=== PATIENT | female | born 1985 | race Hispanic/Latino ===

== ENCOUNTER 2017-01-28 17:24 | Emergency (ER) | payer OTHER ==
--- NOTE | 2017-01-28 19:04 | C.PDOC ---
History Of Present Illness 31 year old female was brought to the emergency department by EMS after being found wandering intoxicated. Patient had pin point pupils on field and was given narcan on field. She denies any trauma, suicidal, or homicidal ideations. Time Seen by Provider: 01/28/17 18:27 Chief Complaint (Nursing): Substance Abuse History Per: Patient, EMS History/Exam Limitations: no limitations Onset/Duration Of Symptoms: Hrs Current Symptoms Are (Timing): Still Present Suicide/Self Injury Attempted (Context): None Associated Symptoms: denies: Suicidal Thoughts, Suicidal Plan Involuntary Hold By: None Recent travel outside of the [place]: No Past Medical History Reviewed: Historical Data, Nursing Documentation, Vital Signs Vital Signs: Last Vital Signs Temp 98.1 F 01/28/17 17:30 Pulse 86 01/28/17 17:30 Resp 18 01/28/17 17:30 BP 127/82 01/28/17 17:30 Pulse Ox 97 01/28/17 19:21 Family History: States: Unknown Family Hx - Social History Hx Alcohol Use: Yes Hx Substance Use: No Review Of Systems Constitutional: Negative for: Fever, Chills Cardiovascular: Negative for: Chest Pain, Palpitations Respiratory: Negative for: Cough, Shortness of Breath Gastrointestinal: Negative for: Nausea, Vomiting, Abdominal Pain, Diarrhea Physical Exam - Physical Exam Appears: Non-toxic, No Acute Distress, Other (Exam performed in the presence of JOHNIE Self. Patient has EtOH on breath, is stuporous, sluggish, and arousable to painful stimuli. ) Skin: Warm, Dry, Other (Patient has pulled out IV ) Head: Atraumatic Eye(s): bilateral: Other (pupils dilated) Oral Mucosa: Moist Neck: Supple Chest: Symmetrical, No Deformity Cardiovascular: Rhythm Regular Respiratory: Normal Breath Sounds, No Rhonchi, No Wheezing Gastrointestinal/Abdominal: Soft, No Tenderness, No Distention, No Guarding, No Rebound Neurological/Psych: Oriented x3 ED Course And Treatment - Laboratory Results Result Diagrams: 01/28/17 19:06 01/28/17 Unknown Lab Interpretation: Abnormal (etoh 469 H, tox + benzo/THC) Urine POC: Negative O2 Sat by Pulse Oximetry: 97 (room air ) Reevaluation Time: 00:22 Reassessment Condition: Improved (improving steadily, multiple re-evals) Medical Decision Making Medical Decision Making: abuse of alcohol, benzo's, marijuana 0100: pending sobriety and dispo in AM Disposition - Disposition Disposition Time: 01:00 Condition: GOOD Forms: [facility] (Turkmen) - Clinical Impression Clinical Impression: Alcohol intoxication, Polysubstance (excluding opioids) dependence - Scribe Statement The provider has reviewed the documentation as recorded by the Scribe Tory Ching All medical record entries made by the Scribe were at my direction and personally dictated by me. I have reviewed the chart and agree that the record accurately reflects my personal performance of the history, physical exam, medical decision making, and the department course for this patient. I have also personally directed, reviewed, and agree with the discharge instructions and disposition. Physician Patient Turnover Patient Signed Over To: Justus Hart Handoff Comments: dispo in AM when sober
[2017-01-28 19:13] LABS: BASO # 0.1 K/uL (0.0-0.2); BASO % 1.7 % (0.0-2.0); EOS # 0.2 K/uL (0.0-0.7); EOS % 5.2 % (0.0-4.0); LYMPH # 1.9 K/uL (1.0-4.3); LYMPH % 46.4 % (20.0-40.0); MEAN CELL VOLUME 104.4 fL (81.0-99.0); MEAN CORPUSCULAR HEMOGLOBIN 35.5 pg (27.0-31.0); MONO # 0.3 K/uL (0.0-0.8); MONO % 7.3 % (0.0-10.0); WHITE BLOOD COUNT 4.1 K/uL (4.8-10.8)
[2017-01-28 19:22] LABS: CHLORIDE 102 mmol/L (98-107)
[2017-01-28 19:23] LABS: POTASSIUM 3.5 mmol/L (3.6-5.2); SODIUM 148 mmol/L (132-148)
[2017-01-28 19:25] LABS: ALB/GLOB RATIO 1.4 (1.0-2.1); ALKALINE PHOSPHATASE 74 U/L (38-126); AST/SGOT 394 U/L (14-36); CARBON DIOXIDE 26 mmol/L (22-30); GFR AFRICAN-AMERICAN > 60; TOTAL PROTEIN 7.3 g/dL (6.3-8.3)
[2017-01-28 19:26] LABS: ALT/SGPT 167 U/L (9-52); BLOOD UREA NITROGEN 4 mg/dL (7-17); CALCIUM 8.5 mg/dl (8.6-10.4); GLUCOSE,RANDOM 77 mg/dL (65-105)
[2017-01-28 19:45] LABS: ALCOHOL SERUM 469 mg/dl (0-10)
[2017-01-28 20:29] LABS: RBC URINE 24 /hpf (0-3); URINE BACTERIA RARE (<OCC); URINE BILIRUBIN NEGATIVE (NEGATIVE); URINE BLOOD 3+ (NEGATIVE); URINE COLOR Yellow (YELLOW); URINE GLUCOSE (UA) NORMAL (Normal); URINE KETONE NEGATIVE (NEGATIVE); URINE LEUKOCYTE ESTERASE NEG Leu/uL (Negative); URINE PROTEIN NEGATIVE (NEGATIVE); URINE UROBILINOGEN NORMAL mg/dL (0.2-1.0); WBC URINE < 1 /hpf (0-5)
[2017-01-29 06:54] VITALS: BP 158/98; PULSE 92; RESP 22; TEMP 98.9; O2SAT 100
== END 2017-01-29 07:09 | disposition home or self-care (01) ==
LOC: C.ER 17:24
DX: F10.129 Alcohol abuse with intoxication, unspecified (principal); Y90.8 Blood alcohol level of 240 mg/100 ml or more; F19.20 Other psychoactive substance dependence, uncomplicated

== ENCOUNTER 2018-02-13 18:25 | Inpatient (IN) | payer MEDICAID, OTHER ==
[2018-02-13 18:59] LABS: HEMOGLOBIN 13.3 g/dL (11.0-16.0); MEAN CELL VOLUME 106.8 fL (81.0-99.0); MEAN CORPUSCULAR HEMOGLOBIN 37.5 pg (27.0-31.0); MEAN CORPUSCULAR HGB CONC 35.1 g/dL (33.0-37.0); RBC 3.55 Mil/uL (3.80-5.20); RED CELL DISTRIBUTION WIDTH 13.2 % (11.5-14.5); WHITE BLOOD COUNT 6.6 K/uL (4.8-10.8)
[2018-02-13 19:05] LABS: HCG,QUALITATIVE URINE NEGATIVE (NEGATIVE)
[2018-02-13 19:06] LABS: SQUAMOUS EPITHIAL 6 /hpf (0-5); URINE BACTERIA OCC (<OCC); URINE BILIRUBIN NEGATIVE (NEGATIVE); URINE CLARITY Hazy (Clear); URINE COLOR Yellow (YELLOW); URINE GLUCOSE (UA) NORMAL (Normal); URINE LEUKOCYTE ESTERASE TRACE Leu/uL (Negative); URINE PROTEIN 2+ mg/dL (NEGATIVE); URINE UROBILINOGEN NORMAL mg/dL (0.2-1.0)
[2018-02-13 19:19] LABS: URINE BLOOD TRACE (NEGATIVE)
--- NOTE | 2018-02-13 19:25 | C.PDOC ---
History Of Present Illness <Cristal Tobar - Last Filed: 02/14/18 00:50> <Justus Hart - Last Filed: 02/14/18 03:09> 32-year-old female presents to the ED requesting detox from alcohol. Last drink was 1 hour prior to arrival. Patient was prescreened by crisis. Otherwise she denies any suicidal or homicidal ideation. (Cristal Tobar) History Per: Patient History/Exam Limitations: no limitations Onset/Duration Of Symptoms: Days Current Symptoms Are (Timing): Still Present Modifying Factor(s): Alcohol <Cristal Tobar - Last Filed: 02/14/18 00:50> <Justus Hart - Last Filed: 02/14/18 03:09> Time Seen by Provider: 02/13/18 18:52 Chief Complaint (Nursing): Substance Abuse Past Medical History Reviewed: Historical Data, Nursing Documentation, Vital Signs Surgical History: No Surg Hx Family History: States: Unknown Family Hx - Social History Hx Tobacco Use: No Hx Alcohol Use: Yes Hx Substance Use: No <Cristal Tobar - Last Filed: 02/14/18 00:50> Vital Signs: Last Vital Signs Temp 98.9 F 02/14/18 02:05 Pulse 94 H 02/14/18 02:05 Resp 14 02/14/18 02:05 BP 141/87 02/14/18 02:05 Pulse Ox 96 02/14/18 02:05 Review Of Systems Except As Marked, All Systems Reviewed And Found Negative. Constitutional: Positive for: Other (ETOH intoxication). Negative for: Fever Gastrointestinal: Negative for: Nausea, Vomiting Psych: Negative for: Suicidal ideation, Withdrawal <Cristal Tobar - Last Filed: 02/14/18 00:50> Physical Exam - Physical Exam Appears: Non-toxic, No Acute Distress Skin: Normal Color, Warm, Dry Head: Atraumatic, Normacephalic Eye(s): bilateral: Normal Inspection Oral Mucosa: Moist Neck: Normal ROM, Supple Chest: Symmetrical Cardiovascular: Rhythm Regular, No Murmur Respiratory: Normal Breath Sounds, No Accessory Muscle Use Gastrointestinal/Abdominal: Soft, No Tenderness, No Distention Extremity: Bilateral: Atraumatic, Normal Color And Temperature, Normal ROM Neurological/Psych: Oriented x3, Normal Speech Gait: Steady <Cristal Tobar - Last Filed: 02/14/18 00:50> ED Course And Treatment - Laboratory Results Result Diagrams: 02/13/18 18:55 02/13/18 18:55 O2 Sat by Pulse Oximetry: 98 (RA) Pulse Ox Interpretation: Normal Progress Note: Blood work and urine sent. Crisis will speak with patient to arrange bed placement. Labs reviewed. Patients potassium is low, 3. Discussed with ED attending Dr. Toro, who recommends giving 40 mg potassium and clearing the patient for detox admission. Spoke with crisis who states patient' s alcohol level is 400+ and Dr. Alcocer will not accept patient until level is below 150. Patient states she has trouble sleeping, will give librium 50mg. <Cristal Tobar - Last Filed: 02/14/18 00:50> - Laboratory Results Result Diagrams: 02/13/18 18:55 02/13/18 18:55 <Justus Hart - Last Filed: 02/14/18 03:09> Disposition - Disposition Disposition Time: 23:00 <Cristal Tobar - Last Filed: 02/14/18 00:50> Discussed With DrFacundo: Burke Alcocer Comment: accepted the pt on his service and took over the care at 3:08 AM Doctor Will See Patient In The: Hospital Counseled Patient/Family Regarding: Studies Performed, Diagnosis - POA Present On Arrival: None <Justus Hart - Last Filed: 02/14/18 03:09> - Disposition Disposition: HOSPITALIZED Condition: STABLE Forms: [facility] (Niuean) - Clinical Impression Clinical Impression: Alcohol abuse, Alcohol intoxication - PA / AGILE SCRUM MASTER / Resident Statement MD/DO has reviewed & agrees with the documentation as recorded. - Scribe Statement The provider has reviewed the documentation as recorded by the Scribe (Ann-Marie Wild) <Cristal Tobar - Last Filed: 02/14/18 00:50> <Justus Hart - Last Filed: 02/14/18 03:09> - Scribe Statement All medical record entries made by the Scribe were at my direction and personally dictated by me. I have reviewed the chart and agree that the record accurately reflects my personal performance of the history, physical exam, medical decision making, and the department course for this patient. I have also personally directed, reviewed, and agree with the discharge instructions and disposition. (Cristal Tobar) Physician Patient Turnover Patient Signed Over To: Justus Hart Handoff Comments: Pending repeat ETOH level and admit. <Cristal Tobar - Last Filed: 02/14/18 00:50> Decision To Admit <Cristal Tobar - Last Filed: 02/14/18 00:50> - Pt Status Changed To: Hospital Disposition Of: Inpatient - Admit Certification Admit to Inpatient:: After my assessment, the patient will require hospitalization for at least two midnights. This is because of the severity of symptoms shown, intensity of services needed, and/or the medical risk in this patient being treated as an outpatient. - InPatient: Physician Admission Certification: I certify that this patient requires 2 or more midnights of care for the following reason:: After my assessment, the patient will require hospitalization for at least two midnights. This is because of the severity of symptoms shown, intensity of services needed, and/or the medical risk in this patient being treated as an outpatient. - . Bed Request Type: Detox Admitting Physician: Burke Alcocer <Justus Hart - Last Filed: 02/14/18 03:09> - . Patient Diagnosis: Alcohol abuse, Alcohol intoxication
[2018-02-13 19:51] LABS: ALB/GLOB RATIO 1.4 (1.0-2.1); ALBUMIN 5.1 g/dL (3.5-5.0); ALT/SGPT 108 U/L (9-52); AST/SGOT 233 U/L (14-36); BLOOD UREA NITROGEN 3 mg/dL (7-17); CALCIUM 8.5 mg/dl (8.6-10.4); GFR AFRICAN-AMERICAN > 60; GFR NON-AFRICAN AMERICAN > 60
[2018-02-13] MEDS ORDERED: Potassium Chloride 20 mEq ER Tab PO STA (19:58)
[2018-02-13 20:03] LABS: BARBITURATES, UR NEGATIVE (NEGATIVE); BENZODIAZEPINES, UR NEGATIVE (NEGATIVE); OPIATES, UR NEGATIVE (NEGATIVE); PHENCYCLIDINE, UR NEGATIVE (NEGATIVE)
[2018-02-13] MEDS ORDERED: Potassium Chloride 20 mEq ER Tab PO ONE (20:11)
[2018-02-14] MEDS: Multiple Vitamins Tab PO SCH (11:16)
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
--- NOTE | 2018-02-14 12:32 | PCM.BM ---
<Kassie Ibrahim - Last Filed: 02/14/18 12:28> Treatment Plan Problems - Problems identified on initial assessmt Potential for alcohol withdrawal Date Initiated: 02/14/18 Time Initiated: 07:00 Assessment reference: NA Status: Active Treatment assets and liabiliti Patient Assests: cooperative, insightful, ADL independent, negotiates basic needs, good interpersonal skills Patient Liabilities: live alone, financial problems, relationship conflicts, substance abuse - Milieu Protocol Maintain good personal hygiene: daily Encourage regular showers, daily Remind patient to perform daily oral care, other Assist patient to perform ADL's (as needs) Conduct patient checks and document Observation sheet: Q15 minutes Maintain personal safety: daily Educate patient to report safety concerns to staff, daily Monitor environment for contraband/sharps, every shift Educate patient to report safety concerns to staff, every shift Monitor environment for contraband/sharps Medication safety: Monitor for expected outcome, potential side effects: daily, every shift, Assess barriers to learning: daily, every shift, Assess readiness for medication education: daily, every shift <Ray Capellan - Last Filed: 02/14/18 14:37> Treatment Plan Problems - Problems identified on initial assessmt Potential for alcohol withdrawal Date Initiated: 02/14/18 Time Initiated: 07:00 Assessment reference: NA Status: Active Potential for opiate withdrawal Date Initiated: 02/14/18 Time Initiated: 07:00 Assessment reference: NA Status: Active - Diagnosis (1) Alcohol use disorder, severe, dependence Status: Acute Interventions: 02/14/18 14:39 * Assess 7x/week regarding severity of withdrawal * Educate regarding risks, benefits, side effects and alternatives of medications * Use Motivational Interviewing for abstinence * Use CBT for relapse prevention * Medication management for withdrawal symptoms * Encourage medication assisted treatment * <Mily De La Cruz - Last Filed: 02/19/18 09:36> Family Contact Family involvement: Famliy/SO not involved - Goals for Treatment Patient goals for treatment: Complete detox and transition to IOP with Vivitrol injection. Discharge/Continuing Care - Education Needs Education Needs: Patient Medication, Patient Diagnosis/Disease Process, Patient Coping Skills, Patient Anger Management skills, Patient Placement options, Patient Community resources - Discharge Discharge Criteria: No longer exhibiting s/s of withdrawal, Reduction of target symptoms Discharge to:: Home, With Family - Treatment Team Participation Patient/Family/SO Statement: 02/19/18 09:36 "I wanna go to outpatient but I wanna try the Vivitrol shot too.." Discussed with Family/SO: No Was Patient/Family/SO present at Treatment Team Meeting: Yes
[2018-02-14 14:40] LABS: BLOOD UREA NITROGEN 2 mg/dL (7-17); CALCIUM 8.8 mg/dl (8.6-10.4); GFR AFRICAN-AMERICAN > 60; GFR NON-AFRICAN AMERICAN > 60
[2018-02-14] MEDS ORDERED: Magnesium Oxide 400 mg Tab UD PO ONE (14:52)
[2018-02-14] MEDS: Magnesium Oxide 400 mg Tab UD PO SCH (18:22)
[2018-02-15] MEDS ORDERED: Potassium Chloride 20 mEq ER Tab PO ONE (10:45)
[2018-02-15] MEDS: Multiple Vitamins Tab PO SCH (10:53)
[2018-02-15] MEDS: Magnesium Oxide 400 mg Tab UD PO SCH ×3 (10:54→18:13)
[2018-02-15] MEDS: Oxymetazoline 0.05% Nasal Spray (30 ml) NS SCH ×2 (11:00→21:48)
--- NOTE | 2018-02-15 14:38 | PCM.PYCHPN ---
Psychiatric Progress Note - Psychiatric Progress Note Patient seen today, length of contact: 18 min Patient Chief Complaint: "I am not well" Problems Identified/Issues Discussed: The pt is seen, chart reviewed, case discussed with staff. Support and psychoeducation given, CBT and HI used briefly No new symptoms reported, improving slowly and needs more time No SEs from medications, risks discussed. After care discussed - not sure what she wants or what she can do due to social problems (losing apartment) She said she may move to [place] but will consider IOP in [facility] first Medication Change: Yes (detox changes daily) Medical Record Reviewed: Yes Mental Status Examination - Cognitive Function Orientation: Person, Place, Situation, Time Memory: Impaired Attention: Poor Concentration: Poor Association: WNL Fund of Knowledge: WNL - Mood Mood: Depressed, Anxious - Affect Affect: Constricted - Speech Speech: Appropriate - Formal Thought Process Formal Thought Process: No Impairment - Suicidal Ideation Suicidal Ideation: No - Homicidal Ideation Homicidal Ideation: No Goal/Treatment Plan - Goal/Treatment Plan Need for Continued Stay: Severe depression anxiety, Discharge may exacerbated symptoms, Severe functional impairment Progress Toward Problem(s) and Goals/Treatment Plan: Taper with Ativan Gabapentin for augmentation Lexapro for anx/dep sxs As needed medications; Atarax 25 mg for anxiety; Motrin 600 mg for pain All risks, benefits and alternatives of the meds discussed, and the pt agreed and understood. Attend groups and activities Supportive therapy and psychoeducation [place] for abstinence CBT for relapse prevention Encourage MAT Refer to rehab or IOP, and self-help groups Estimated Date of D/C: 02/18/18
[2018-02-15] MEDS: guaiFENesin 100 mg/5 ml Syrup UD PO PRN (18:16)
[2018-02-16] MEDS: guaiFENesin 100 mg/5 ml Syrup UD PO PRN ×3 (00:34→13:39)
[2018-02-16 08:46] LABS: ALB/GLOB RATIO 1.5 (1.0-2.1); ALBUMIN 4.1 g/dL (3.5-5.0); ALT/SGPT 66 U/L (9-52); AST/SGOT 119 U/L (14-36); BLOOD UREA NITROGEN 4 mg/dL (7-17); CALCIUM 9.1 mg/dl (8.6-10.4); GFR AFRICAN-AMERICAN > 60; GFR NON-AFRICAN AMERICAN > 60
[2018-02-16] MEDS: Multiple Vitamins Tab PO SCH (09:59)
[2018-02-16] MEDS: Magnesium Oxide 400 mg Tab UD PO SCH ×3 (09:59→17:24)
[2018-02-16] MEDS: Oxymetazoline 0.05% Nasal Spray (30 ml) NS SCH ×2 (10:51→21:53)
--- NOTE | 2018-02-16 12:56 | PCM.PYCHPN ---
Psychiatric Progress Note - Psychiatric Progress Note Patient seen today, length of contact: 17 min Patient Chief Complaint: "I have a cold" Problems Identified/Issues Discussed: The pt is seen, chart reviewed, case discussed with staff. The pt is compliant with medications and reports no side-effects. Symptoms are improving but needs more time to stabilize. After care discussed, support and psychoeducation given. She has cold - treatment recommended Medication Change: Yes (detox changes daily) Medical Record Reviewed: Yes Mental Status Examination - Cognitive Function Orientation: Person, Place, Situation, Time Memory: Impaired Attention: Poor Concentration: Poor Association: WNL Fund of Knowledge: WNL - Mood Mood: Depressed, Anxious - Affect Affect: Constricted - Speech Speech: Appropriate - Formal Thought Process Formal Thought Process: No Impairment - Suicidal Ideation Suicidal Ideation: No - Homicidal Ideation Homicidal Ideation: No Goal/Treatment Plan - Goal/Treatment Plan Need for Continued Stay: Severe depression anxiety, Discharge may exacerbated symptoms, Severe functional impairment Progress Toward Problem(s) and Goals/Treatment Plan: Taper with Ativan Gabapentin for augmentation Lexapro for anx/dep sxs As needed medications; Atarax 25 mg for anxiety; Motrin 600 mg for pain All risks, benefits and alternatives of the meds discussed, and the pt agreed and understood. Attend groups and activities Supportive therapy and psychoeducation [place] for abstinence CBT for relapse prevention Encourage MAT Refer to rehab or IOP, and self-help groups Estimated Date of D/C: 02/19/18
[2018-02-16] MEDS: Benzocaine/Menthol (Cepacol) Lozenge MT PRN (13:42)
[2018-02-17] MEDS: Multiple Vitamins Tab PO SCH (10:56)
[2018-02-17] MEDS: Benzocaine/Menthol (Cepacol) Lozenge MT PRN ×2 (10:58→21:48)
[2018-02-17] MEDS: Oxymetazoline 0.05% Nasal Spray (30 ml) NS SCH ×2 (10:58→22:00)
[2018-02-17] MEDS: Magnesium Oxide 400 mg Tab UD PO SCH ×3 (10:59→18:10)
[2018-02-17] MEDS: guaiFENesin 100 mg/5 ml Syrup UD PO PRN (11:03)
[2018-02-17 11:24] VITALS: RESP 18
--- NOTE | 2018-02-17 19:47 | PCM.PYCHPN ---
Psychiatric Progress Note - Psychiatric Progress Note Patient seen today, length of contact: 15 MIN Patient Chief Complaint: I FEEL DISCOMBOBULATED Problems Identified/Issues Discussed: PT SEEN AND EXAMINED PT DISCUSSED WITH STAFF. AFTERCARE PLANS DISCUSSED WANTS A SHORT TERM REHAB Medical Problems: URI Diagnostic Results: REVIEWED DSM 5 Symptoms Update: FEELING CONFUDED NOT HER NORMAL SELF Medication Change: Yes (detox changes daily) Medical Record Reviewed: Yes Mental Status Examination - Cognitive Function Orientation: Person, Place, Situation, Time Memory: Impaired Attention: Poor Concentration: Poor Association: WNL Fund of Knowledge: WNL - Mood Mood: Depressed, Anxious - Affect Affect: Constricted - Speech Speech: Appropriate - Formal Thought Process Formal Thought Process: No Impairment - Suicidal Ideation Suicidal Ideation: No - Homicidal Ideation Homicidal Ideation: No Goal/Treatment Plan - Goal/Treatment Plan Need for Continued Stay: Severe depression anxiety, Discharge may exacerbated symptoms, Severe functional impairment Progress Toward Problem(s) and Goals/Treatment Plan: ALCOHOL WITHDRAWAL BENZODIAZEPINE TAPER ALCOHOL USE DISORDER PA CBT SUPPORTIVE PSYCHOTHERAPY GROUP MILIEU AND RECREATIONAL THERAPY Estimated Date of D/C: 02/19/18 - Smoking Cessation Smoking Cessation Initiated: No
[2018-02-18] MEDS: guaiFENesin 100 mg/5 ml Syrup UD PO PRN (06:39)
[2018-02-18] MEDS: Multiple Vitamins Tab PO SCH (09:58)
[2018-02-18] MEDS: Magnesium Oxide 400 mg Tab UD PO SCH ×3 (10:00→18:05)
[2018-02-18] MEDS: Oxymetazoline 0.05% Nasal Spray (30 ml) NS SCH ×2 (10:02→21:38)
[2018-02-18 12:53] VITALS: O2SAT 98
--- NOTE | 2018-02-18 19:43 | PCM.PYCHPN ---
Psychiatric Progress Note - Psychiatric Progress Note Patient seen today, length of contact: 15 MIN Patient Chief Complaint: MY THROAT HURTS AND I THINK I HAVE STREP THROAT Problems Identified/Issues Discussed: PT SEEN AND EXAMINED DISCUSSED WITH STAFF DISCUSSED WITH PT HER ANTIDEPRESSANT LEXAPRO TIME TO START WORKING AND SIDE EFFECTS INCLUDING HEADACHE AND SEXUAL DYSFUCTIONS THAT ARE POSSIBLE ALSO TALKED ABOUT POST ACUTE WITHDRAWAL SYNDROME Medical Problems: URI POSSIBLE STREP THROAT CULTURE ORDERED Diagnostic Results: REVIEWED DSM 5 Symptoms Update: MYALGIAS ARTHRAGLIAS NAUSEA GOOSE BUMPS Medication Change: Yes (ATIVAN DOASAGES CHANGE DAILY) Medical Record Reviewed: Yes Mental Status Examination - Cognitive Function Orientation: Person, Place, Time Memory: Intact, Impaired Attention: WNL Concentration: Poor Association: WNL - Mood Mood: Depressed, Anxious - Speech Speech: Appropriate - Formal Thought Process Formal Thought Process: No Impairment - Suicidal Ideation Suicidal Ideation: No - Homicidal Ideation Homicidal Ideation: No Goal/Treatment Plan - Goal/Treatment Plan Need for Continued Stay: Severe depression anxiety, Discharge may exacerbated symptoms, Severe functional impairment Progress Toward Problem(s) and Goals/Treatment Plan: ALCOHOL WITHDRAWAL ATIVAN TAPER ALCOHOL USE DISORDER -[place] CBT SUPPORTIVE PSYCHOTHERAPY GROUP MILIEU AND RECREATIONAL THERAPY Estimated Date of D/C: 02/19/18 - Smoking Cessation Smoking Cessation Initiated: No
[2018-02-18] MEDS: Benzocaine/Menthol (Cepacol) Lozenge MT PRN (20:41)
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
[2018-02-19] MEDS: Multiple Vitamins Tab PO SCH (10:03)
[2018-02-19] MEDS: Benzocaine/Menthol (Cepacol) Lozenge MT PRN (10:05)
[2018-02-19] MEDS: Magnesium Oxide 400 mg Tab UD PO SCH (10:05)
[2018-02-19] MEDS: Oxymetazoline 0.05% Nasal Spray (30 ml) NS SCH (10:18)
[2018-02-19 11:36] VITALS: BP 95/63; PULSE 84; TEMP 98.5
== END 2018-02-19 12:13 | disposition home or self-care (01) | DRG 426 ==
LOC: C.ER 18:25 → C.7D 02-14 03:07
PROC: GZHZZZZ Group Psychotherapy (ICD-10-PCS; principal; 2018-02-14)
PROC: GZ56ZZZ Individual Psychotherapy, Supportive (ICD-10-PCS; 2018-02-14)
DX: F32.9 Major depressive disorder, single episode, unspecified (principal); R56.9 Unspecified convulsions; F10.230 Alcohol dependence with withdrawal, uncomplicated; F41.0 Panic disorder [episodic paroxysmal anxiety]; J06.9 Acute upper respiratory infection, unspecified; F10.220 Alcohol dependence with intoxication, uncomplicated; Y90.8 Blood alcohol level of 240 mg/100 ml or more

== ENCOUNTER 2018-03-16 20:31 | Emergency (ER) | payer MEDICAID, OTHER ==
[2018-03-16 20:44] VITALS: TEMP 98.3
[2018-03-16 22:37] LABS: BASO # 0.1 K/uL (0.0-0.2); BASO % 2.2 % (0.0-2.0); EOS # 0.3 K/uL (0.0-0.7); EOS % 6.8 % (0.0-4.0); HEMOGLOBIN 13.2 g/dL (11.0-16.0); LYMPH # 2.6 K/uL (1.0-4.3); LYMPH % 59.4 % (20.0-40.0); MEAN CELL VOLUME 105.9 fL (81.0-99.0); MEAN CORPUSCULAR HEMOGLOBIN 36.4 pg (27.0-31.0); MEAN CORPUSCULAR HGB CONC 34.4 g/dL (33.0-37.0); MEAN PLATELET VOLUME 7.5 fL (7.2-11.7); MONO # 0.3 K/uL (0.0-0.8); MONO % 7.2 % (0.0-10.0); NEUT # 1.1 K/uL (1.8-7.0); NEUT % 24.4 % (50.0-75.0); NRBC % 0.2 % (0.0-2.0); RBC 3.63 Mil/uL (3.80-5.20); RED CELL DISTRIBUTION WIDTH 13.9 % (11.5-14.5); WHITE BLOOD COUNT 4.4 K/uL (4.8-10.8)
[2018-03-16 22:52] LABS: ALB/GLOB RATIO 1.3 (1.0-2.1); ALBUMIN 4.5 g/dL (3.5-5.0); ALT/SGPT 58 U/L (9-52); AST/SGOT 111 U/L (14-36); BLOOD UREA NITROGEN 7 mg/dL (7-17); CALCIUM 8.9 mg/dl (8.6-10.4); GFR NON-AFRICAN AMERICAN > 60
--- NOTE | 2018-03-17 00:31 | C.PDOC ---
History Of Present Illness <Justus Hart - Last Filed: 03/17/18 04:23> <Dorian Sandoval DO - Last Filed: 03/17/18 12:15> 33 year old female brought in via EMS after being found intoxicated in public. Denies physical complaints at this time. (Dorian Sandoval DO) <Justus Hart - Last Filed: 03/17/18 04:23> History Per: Patient History/Exam Limitations: no limitations Onset/Duration Of Symptoms: Days Current Symptoms Are (Timing): Still Present Suicide/Self Injury Attempted (Context): None Modifying Factor(s): Alcohol Associated Symptoms: denies: Depression, Suicidal Thoughts Involuntary Hold By: None Recent travel outside of the [place]: No <Dorian Sandoval DO - Last Filed: 03/17/18 12:15> Chief Complaint (Nursing): Substance Abuse Past Medical History Reviewed: Historical Data, Nursing Documentation, Vital Signs - Medical History PMH: Anxiety Family History: States: Unknown Family Hx - Social History Hx Tobacco Use: No Hx Alcohol Use: Yes Hx Substance Use: Yes <Dorian Sandoval DO - Last Filed: 03/17/18 12:15> Vital Signs: Last Vital Signs Temp 98.3 F 03/16/18 20:43 Pulse 80 03/17/18 04:27 Resp 14 03/17/18 04:27 BP 110/80 03/17/18 04:27 Pulse Ox 97 03/17/18 04:27 - [facility] Procedures GROUP PSYCHOTHERAPY (02/14/18) INDIVIDUAL PSYCHOTHERAPY, SUPPORTIVE (02/14/18) Review Of Systems Constitutional: Negative for: Fever, Chills Cardiovascular: Negative for: Chest Pain, Palpitations Respiratory: Negative for: Cough, Shortness of Breath Gastrointestinal: Negative for: Nausea, Vomiting <Dorian Sandoval DO - Last Filed: 03/17/18 12:15> Physical Exam - Physical Exam Appears: Non-toxic, Other (ETOH on breath) Skin: Normal Color, Warm, Dry Head: Normacephalic, Other (Hematoma to posterior scalp) Eye(s): bilateral: Normal Inspection Oral Mucosa: Moist Neck: Normal, No Midline Cervical Tenderness, No Paracervical Tenderness, Supple Chest: Symmetrical, No Tenderness Cardiovascular: Rhythm Regular Respiratory: Normal Breath Sounds, No Rales, No Rhonchi, No Wheezing Gastrointestinal/Abdominal: Soft, No Tenderness Back: No CVA Tenderness Neurological/Psych: Oriented x3, Normal Speech <Dorian Sandoval DO - Last Filed: 03/17/18 12:15> ED Course And Treatment - Laboratory Results Result Diagrams: 03/16/18 22:25 03/16/18 22:25 Pulse Ox Interpretation: Normal Reevaluation Time: 04:23 Reassessment Condition: Improved <Justus Hart - Last Filed: 03/17/18 04:23> - Laboratory Results Result Diagrams: 03/16/18 22:25 03/16/18 22:25 O2 Sat by Pulse Oximetry: 98 (Room air) Pulse Ox Interpretation: Normal Progress Note: CT head and blood work ordered. <Dorian Sandoval DO - Last Filed: 03/17/18 12:15> Disposition Counseled Patient/Family Regarding: Studies Performed, Diagnosis, Need For Followup, Smoking Cessation - Disposition Disposition Time: 01:00 <Justus Hart - Last Filed: 03/17/18 04:23> <Dorian Sandoval DO - Last Filed: 03/17/18 12:15> - Disposition Disposition: HOME/ ROUTINE Condition: IMPROVED Instructions: Alcohol Abuse and Alcoholism (DC) Forms: [employer] (Croatian) - Clinical Impression Clinical Impression: Alcohol intoxication <Justus Hart - Last Filed: 03/17/18 04:23> - Scribe Statement The provider has reviewed the documentation as recorded by the Scribe <Dorian Sandoval DO - Last Filed: 03/17/18 12:15> - Scribe Statement Ralph Singh All medical record entries made by the Scribe were at my direction and personally dictated by me. I have reviewed the chart and agree that the record accurately reflects my personal performance of the history, physical exam, medical decision making, and the department course for this patient. I have also personally directed, reviewed, and agree with the discharge instructions and disposition. (Dorian Sandoval DO)
[2018-03-17 04:28] VITALS: BP 110/80; PULSE 80; RESP 14
--- NOTE | 2018-03-17 09:03 | CT ---
Date of service: 03/16/2018 PROCEDURE: CT HEAD WITHOUT CONTRAST. HISTORY: s/p fall - r/o ICH and fx COMPARISON: None available. TECHNIQUE: Axial computed tomography images were obtained through the head/brain without intravenous contrast. Radiation dose: Total exam DLP = 1075.4 mGy-cm. This CT exam was performed using one or more of the following dose reduction techniques: Automated exposure control, adjustment of the mA and/or kV according to patient size, and/or use of iterative reconstruction technique. FINDINGS: HEMORRHAGE: No intracranial hemorrhage. BRAIN: No mass effect or edema. Mild atrophy for age. No chronic microvascular ischemic changes. VENTRICLES: Prominent. No hydrocephalus. CALVARIUM: Unremarkable. PARANASAL SINUSES: Unremarkable as visualized. No significant inflammatory changes. MASTOID AIR CELLS: Unremarkable as visualized. No inflammatory changes. OTHER FINDINGS: Right parietal scalp hematoma. IMPRESSION: Right parietal scalp hematoma. No calvarial fracture. No acute intracranial hemorrhage. Mild atrophy for age.
[2018-03-17 12:16] VITALS: O2SAT 98
== END 2018-03-17 04:30 | disposition home or self-care (01) ==
LOC: C.ER 20:31
DX: F10.129 Alcohol abuse with intoxication, unspecified (principal); Y90.8 Blood alcohol level of 240 mg/100 ml or more